=== PATIENT | female | born 1985 | race African-American/Black ===

== ENCOUNTER 2019-05-02 12:02 | Emergency (ER) | payer MEDICARE, OTHER ==
[~2019-05-02] VITALS: Ht 167.6 cm; Wt 75.0 kg
[2019-05-02] MEDS ORDERED: LORAZEPAM 1MG TABLET PO ONE (12:30)
[2019-05-02 12:44] LABS: BASOPHILS % 0.6 % (0.0-2.0); EOSINOPHILS % 0.5 % (0.0-5.0); HEMATOCRIT. 40.1 % (36.0-48.0); HEMOGLOBIN. 13.5 g/dL (12.0-16.0); LYMPHOCYTES % 18.2 % (20.0-50.0); MEAN CORPUSCULAR HEMOGLOBIN 31.8 pg (28.0-32.0); MEAN CORPUSCULAR VOLUME 94.7 fL (81.0-99.0); MEAN PLATELET VOLUME 8.6 fl (7.4-10.4); MONOCYTES % 12.3 % (2.0-8.0); NEUTROPHILS % 68.4 % (40.0-76.0); PLATELET 386 x1000/uL (130-400); RED BLOOD CELL COUNT 4.24 mill/uL (4.2-5.4); RED CELL DISTRIBUTION WIDTH 14.3 % (11.6-14.6)
[2019-05-02 12:49] LABS: CHLORIDE 108 mEq/L (98-107)
[2019-05-02 12:53] LABS: ETHANOL BLOOD < 10 mg/dL
[2019-05-02] MEDS ORDERED: OLANZAPINE 5MG TABLET ODT PO ONE (13:00)
[2019-05-02 13:07] LABS: HCG SCREEN POSITIVE
[2019-05-02 13:18] LABS: CLARITY URINE CLOUDY (CLEAR); COLOR URINE YELLOW (YELLOW); KETONES URINE NEGATIVE (NEGATIVE); LEUKOCYTE ESTERASE URINE 1+ (NEGATIVE); NITRITE URINE NEGATIVE (NEGATIVE); OCCULT BLOOD URINE NEGATIVE (NEGATIVE); PROTEIN URINE TRACE (NEGATIVE); SPECIFIC GRAVITY URINE 1.021 (1.005-1.030); UROBILINOGEN URINE 0.2 E.U./dL (0.2-1.0)
[2019-05-02] MEDS ORDERED: LEVOFLOXACIN 500MG TABLET PO ONE (13:30)
[2019-05-02] MEDS ORDERED: NITROFURANTOIN 100MG M/M CAPSULE PO ONE (13:30)
[2019-05-02 14:03] LABS: *AMPHETAMINES SCREEN URINE NEGATIVE (NEGATIVE); *BARBITURATES SCREEN URINE NEGATIVE (NEGATIVE); *BENZODIAZEPINES SCREEN URINE NEGATIVE (NEGATIVE); *COCAINE SCREEN URINE NEGATIVE (NEGATIVE); METHADONE URINE SCREEN NEGATIVE (NEGATIVE); OPIATES URINE SCREEN NEGATIVE (NEGATIVE)
[2019-05-02 14:04] LABS: CANNABINOID URINE SCREEN NEGATIVE (NEGATIVE); PHENCYCLIDINE URINE SCREEN NEGATIVE (NEGATIVE)
[2019-05-02 15:11] VITALS: BP 115/79
[2019-05-02] MEDS ORDERED: HALOPERIDOL LACTATE 5MG/ML VIAL IM ONE (16:45)
[2019-05-02] MEDS ORDERED: NICOTINE 14MG PATCH TD ONE (16:45)
[2019-05-02] MEDS ORDERED: NITROFURANTOIN 100MG M/M CAPSULE PO SCH (21:00)
== END 2019-05-02 17:51 | disposition left against medical advice (07) ==
LOC: ER 12:42
DX: F29 Unspecified psychosis not due to a substance or known physiological condition (principal); N39.0 Urinary tract infection, site not specified; J45.909 Unspecified asthma, uncomplicated; F20.9 Schizophrenia, unspecified
CPT/HCPCS: 36415; 71045; 76856; 80053; 80305; 80307; 80320; 80329; 81003; 81025; 84484; 84702; 84703; 85025; 86850; 86900; 93005; 99284; J1630; G0480